=== PATIENT | male | born 2000 | race Caucasian/White ===

== ENCOUNTER 2020-02-03 16:59 | Day surgery (SDC) ==
[~2020-02-03 16:59] MED LIST: Dexamethasone 20 MG/5 ML VIAL ONE; Lidocaine 1% PF 5 ML VIAL ONE; Ondansetron PF 4 MG/2 ML Vial ONE; PROPOFOL 200 MG/20 ML VIAL ONE; Rocuronium Bromide 10 MG/ML (10ML VIAL) ONE
[2020-02-03] MEDS ORDERED: EPINEPHrine 1 MG/ML AMP ONE (17:08)
[2020-02-03] MEDS ORDERED: Bupivacaine 0.25% HCL 30 ML VIAL ONE (17:08)
[2020-02-03] MEDS ORDERED: Fentanyl 100 MCG/2 ML VIAL ONE ×2 (17:09→19:02)
[2020-02-03] MEDS ORDERED: Piperacillin/Tazobactam 3.375 GM VIAL ONE (18:08)
[2020-02-03] MEDS ORDERED: HYDROcodone/Acetaminophen 5/325 mg Tablet ONE (19:22)
--- NOTE | 2020-02-04 01:11 | OP ---
DATE OF PROCEDURE: 02/03/2020 PREOPERATIVE DIAGNOSIS: Pilonidal cyst with abscess. PROCEDURE PERFORMED: Incision and drainage of sacral pilonidal abscess. INDICATIONS: This is a 19-year-old male, who had a limited I and D about 2 months ago at outpatient ER. It seemed to get better and then over the last week or so it has been a lot worse, quite a bit of swelling, very large pilonidal cyst. FINDINGS: 8 x 10 x 8 cm cavity containing purulent fluid under pressure, somewhat hemorrhagic. DESCRIPTION OF PROCEDURE: After informed consent was obtained, patient was taken to the operating room, given general endotracheal anesthesia, was placed in the right lateral decubitus position. His gluteal area was prepped and draped in usual fashion. A wide elliptical incision was performed releasing purulent melednez brown fluid under pressure. This was very foul smelling and sent for culture and sensitivity. The cavity was thoroughly irrigated with saline as well as saline and hydrogen peroxide. Hemostasis was achieved with electrocautery. Then, the wound was packed open with Betadine-soaked gauze. Sterile bandage applied. The patient tolerated the procedure well, transferred to Recovery in good condition. Sponge and needle count verified correct x2. Job ID: [id number]
== END 2020-02-03 19:50 | disposition home or self-care (01) ==
LOC: SDC 16:59
PROVIDERS: ATTEND Surgery
PROC: 0H98XZZ Drainage of Buttock Skin, External Approach (ICD-10-PCS; principal; 2020-02-03)
DX: L05.01 Pilonidal cyst with abscess (principal); Z88.2 Allergy status to sulfonamides
CPT/HCPCS: 87070; 87076; 87077; 87186; 87205; J0171; J1100; J2405; J2543; J2704; J3010; S0020